=== PATIENT | male | born 1975 | race Caucasian/White ===

== ENCOUNTER → 2016-08-30 | Outpatient (CLI) | payer OTHER ==
[~2016-08-30] MED LIST: NO MEDICATIONS
--- NOTE | ~2016-08-30 | US6 ---
[facility] A Service of [facility] & [facility] RADIOLOGY TEXT RESULTS PATIENT: JOJO ABBOTT LOCATION: SGUS : 79 UNIT #: [id number] AGE: [address]: Ector Sadler MD SEX: M ORDER DR: [id number] [address] [address] [id number] O MR#: [id number] Acc #: [id number] NAME: JOJO ABBOTT : 1975 SEX: M STUDY DATE/TIME: 08/30/2016 8:06 UNIT: SG ROOM: STUDY DESCRIPTION: US Abdominal Limited Attending Physician: Ector Sadler M.D. Referring Physician: Ector Sadler M.D. Ordering Physician: Ector Sadler M.D. Primary Care Physician: Ector Sadler M.D. MEDICAL IMAGING REPORT This report is preliminary unless electronic signature is present. EXAM Right upper quadrant ultrasound 08/30/2016 HISTORY Abnormally elevated liver enzymes diagnosed 3 weeks ago. FINDINGS The liver demonstrates an increase in echotexture with attenuation of the ultrasound beam characteristic of fatty infiltration. No cystic or solid mass lesions were seen in the liver. The intra- and extrahepatic bile ducts are not dilated. The gallbladder is normal with no evidence of cholelithiasis, wall thickening or pericholecystic fluid. The common duct measures 3 mm. The pancreas and right kidney are normal. IMPRESSION Fatty infiltration of the liver. Otherwise negative right upper quadrant ultrasound. Dictated by... Josias Callahan M.D. THIS IS AN ELECTRONICALLY VERIFIED REPORT Josias Callahan M.D. at 08/31/2016 8:02 AM JHON/esther TD: 08/30/2016 09:30 JOB #: [id number] MEDICAL IMAGING REPORT Page 1 of 1
== END | disposition home or self-care (01) ==
LOC: SGUS 07:48
DX: R94.5 Abnormal results of liver function studies (principal); K76.0 Fatty (change of) liver, not elsewhere classified
CPT/HCPCS: 76705

== ENCOUNTER → 2016-10-03 | Day surgery (SDC) | payer OTHER ==
--- NOTE | ~2016-10-03 | OR ---
Unit #: [id number] #: [id number] Patient: JOJO ABBOTT [id number] [address] [address] [id number] O MR#: [id number] NAME: JOJO ABBOTT. ROOM: Date of Procedure: 10/03/2016 Admission Date: 10/03/2016 Surgeon: Prabhu Govea M.D. : 1975 Attending Physician: Prabhu Govea M.D. Primary Care Physician: Ector Sadler M.D. OPERATIVE REPORT PREOPERATIVE DIAGNOSES 1. Right-sided retained ear tube. 2. Tympanic membrane perforation on the right. POSTOPERATIVE DIAGNOSES 1. Right-sided retained ear tube. 2. Tympanic membrane perforation on the right. PROCEDURE PERFORMED Right-sided tube removal with tympanic membrane repair with paper patch. ANESTHESIA By general mask anesthesia. COMPLICATIONS There were none. FINDINGS Included a right-sided retained T-tube. HISTORY This is a 40-year-old male, who has had a past history of chronic otitis media with a retained tube for many years on the right. He presents today for tube removal with TM repair. DESCRIPTION OF PROCEDURE The patient was placed supine on the operative table. Anesthesia was achieved by general LMA anesthesia. The patient was prepped and draped for right-sided tube removal. Microscope was used to visualize the ear more appropriately and a speculum was placed. Alligator forceps was used to remove the T-tube and then a Whitley Needle to freshen the edges of the TM perforation in the form of tympanic membrane repair. A paper patch was then placed over the resultant TM perforation. The patient was awakened and transferred to recovery in stable condition. Dictated by... Adriana Mojica/john TD: 10/05/2016 02:13 Unit #: [id number] #: [id number] Patient: JOJO ABBOTT JOB #: [id number] OPERATIVE REPORT Page 1 of 1 X Prabhu Govea MD PROCEDURE OPERATIVE NOTE
== END | disposition home or self-care (01) ==
LOC: CSUR 08:52
DX: H72.91 Unspecified perforation of tympanic membrane, right ear (principal); G47.30 Sleep apnea, unspecified; H69.80 Other specified disorders of Eustachian tube, unspecified ear; H80 Otosclerosis; J32.9 Chronic sinusitis, unspecified; J34.89 Other specified disorders of nose and nasal sinuses; H90.2 Conductive hearing loss, unspecified; Z98.890 Other specified postprocedural states
CPT/HCPCS: J0171; J2250; J2405; J3010